=== PATIENT | male | born 1930 ===

== ENCOUNTER 2018-03-18 13:36 | Emergency (ER) | payer OTHER ==
[~2018-03-18] VITALS: Ht 157.5 cm; Wt 76.2 kg
[~2018-03-18 13:36] MED LIST: AMBIEN5 MG; BACLOFEN5 GM; COZAAR25 MG; LASIX40 MG; PERCOCET 10-3251 TAB; PERPHENAZINE2 MG; ZOLOFT25 MG
== END 2018-03-18 20:29 | disposition home or self-care (01) ==
LOC: ER 13:36
DX: J09.X2 Influenza due to identified novel influenza A virus with other respiratory manifestations (principal); K62.5 Hemorrhage of anus and rectum

== ENCOUNTER 2018-03-26 12:04 | Emergency (ER) | payer OTHER ==
[~2018-03-26] VITALS: Ht 152.4 cm; Wt 61.2 kg
== END 2018-03-26 20:07 | disposition home or self-care (01) ==
LOC: ER 12:04
DX: B34.9 Viral infection, unspecified (principal); K52.9 Noninfective gastroenteritis and colitis, unspecified; J06.9 Acute upper respiratory infection, unspecified